=== PATIENT | female | born 1950 | race Caucasian/White ===

== ENCOUNTER 2023-07-22 05:50 | Day surgery (SDC) | payer MEDICARE ==
[2023-07-21 15:26] VITALS: BMI 34.7
[~2023-07-22 05:50] MED LIST: EPINEPHrine 0.3 MG in Ophthalmic Irrigation Solution 500 ML IRR SCH
[2023-07-22] MEDS ORDERED: Cyclopentolate W/ Phenylephrin 5 ML BOT ONE (06:10)
[2023-07-22] MEDS ORDERED: PHENYLephrine 2.5% Ophth Soln 15 ml Bottle ONE (06:11)
[2023-07-22] MEDS ORDERED: Cyclopentolate 1% Opth Drop 2 ML BOT ONE (06:11)
[2023-07-22] MEDS ORDERED: Midazolam HCl 2 mg/2 ml Vial ONE (07:02)
[2023-07-22] MEDS ORDERED: fentaNYL 50 mcg/mL 1 mL Vial ONE (07:02)
[2023-07-22] MEDS ORDERED: Lidocaine 1% PF 5 ML VIAL ONE (07:10)
[2023-07-22] MEDS ORDERED: Maxitrol 0.1% Opth Oint 3.5 GM TUBE ONE (07:10)
[2023-07-22] MEDS ORDERED: Lidocaine 4% PF 5 ML AMP ONE (07:10)
[2023-07-22] MEDS ORDERED: CEFAZOLIN 1 GM VIAL ONE (07:10)
[2023-07-22] MEDS ORDERED: PROPOFOL 200 MG/20 ML VIAL ONE (07:10)
[2023-07-22] MEDS ORDERED: Bupivacaine 0.75% 10 ML VIAL ONE (07:10)
[2023-07-22] MEDS ORDERED: Triamcinolone 40 MG/ML VIAL ONE (07:10)
== END 2023-07-22 08:56 | disposition home or self-care (01) ==
LOC: SDC 05:50
PROVIDERS: ATTEND Ophthalmology Retina Specialist
PROC: 08T43ZZ Resection of Right Vitreous, Percutaneous Approach (ICD-10-PCS; principal; 2023-07-22)
DX: H33.001 Unspecified retinal detachment with retinal break, right eye (principal)
CPT/HCPCS: 67025; 67108; J3010; J0171; J0690; J2250; J2704; J3301; J3490

== ENCOUNTER 2025-05-31 14:44 | Outpatient (CLI) | payer MEDICARE | END 2025-05-31 14:45 | disposition home or self-care (01) | LOC: ULT 14:44 | PROVIDERS: ATTEND Internal Medicine Gastroenterology | DX: K42.9 Umbilical hernia without obstruction or gangrene (principal); K44.9 Diaphragmatic hernia without obstruction or gangrene; R10.13 Epigastric pain | CPT/HCPCS: 76705 ==